=== PATIENT | female | born 2000 | race Caucasian/White ===

== ENCOUNTER 2022-09-03 18:28 | Emergency (ER) | payer BC, MEDICAID ==
[~2022-09-03] VITALS: Ht 167.6 cm; Wt 81.6 kg
[2022-09-03 18:42] VITALS: BP 123/87
[2022-09-03] MEDS ORDERED: KETOROLAC 30 MG/ML VIAL IM ONE (19:30)
[2022-09-03 19:49] LABS: APPEARANCE,URINE CLEAR (CLEAR); BILIRUBIN,URINE NEGATIVE (NEGATIVE); BLOOD, URINE 2+ (NEGATIVE); COLOR,URINE YELLOW (YELLOW); LEUKOCYTE ESTERASE ,URINE NEGATIVE (NEGATIVE); NITRITE, URINE NEGATIVE (NEGATIVE); UGLUCOSE NEGATIVE (NEGATIVE)
[2022-09-03 20:03] LABS: BASOPHILS % (AUTO) 0.4 % (0.0-2.0); EOSINOPHILS % (AUTO) 0.3 % (0.0-4.0); HEMATOCRIT 42.2 % (36-48); HEMOGLOBIN 13.6 g/dL (12.0-16.0); LYMPHOCYTES # (AUTO) 1.7 K/uL (2.5-16.5); LYMPHOCYTES % (AUTO) 13.9 % (20.5-51.1); MEAN CORPUSCULAR HEMOGLOBIN 27 pg (27-31); MEAN CORPUSCULAR HGB CONC 32 g/dL (33-37); MEAN CORPUSCULAR VOLUME 84.4 fL (80-94); MONOCYTES # (AUTO) 0.4 K/uL (0.8-1.0); MONOCYTES % (AUTO) 3.4 % (1.7-9.3); NEUTROPHILS # (AUTO) 10.3 K/uL (1.8-7.7); PLATELET COUNT (AUTO) 393 K/uL (140-450); RED CELL DISTRIBUTION WIDTH 13.4 % (11.6-13.7); WHITE BLOOD COUNT (AUTO) 12.5 K/uL (4.5-11.0)
[2022-09-03 20:04] LABS: RBC,URINE 11-20 (MOD) /HPF (0-5)
[2022-09-03 20:12] LABS: ALBUMIN 4.4 g/dL (3.4-5.0); ANION GAP 13.3 (8-16); CREATININE 0.7 mg/dL (0.6-1.3); POTASSIUM 4.3 mmol/L (3.5-5.1); TOTAL BILIRUBIN 0.8 mg/dL (0.0-1.0)
--- NOTE | 2022-09-03 20:43 | NUR ---
PT TO 11
[2022-09-03] MEDS ORDERED: IBUP-2213 PO (20:54)
[2022-09-03 21:19] VITALS: BP 112/74
--- NOTE | 2022-09-03 21:20 | NUR ---
Patient lying in bed, A/Ox4, chest rise and fall symmetrical, no c/o pain or s/s of discomfort, on monitor
[2022-09-07] MEDS ORDERED: CEPH-588 PO (18:48)
--- NOTE | 2022-09-07 18:50 | NUR ---
LATE ENTRY. RECEIVED POSITIVE URINE CULTURE. FORM GIVEN TO DR WAKEFIELD. NEW RX SENT TO PTS [facility]. DR WAKEFIELD AND MYSELF ATTEMPTED TO CALL PT MULTIPLE TIME, NO ANSWER. VM LEFT. FORM PLACED IN BINDER
== END 2022-09-03 21:22 | disposition home or self-care (01) ==
LOC: MED 18:28
DX: R10.2 Pelvic and perineal pain (principal)
CPT/HCPCS: 36415; 76856; 80053; 81001; 81025; 83605; 85025; 87086; 93976; 96372; 99285; J1885; Q0092